=== PATIENT | male | born 1980 | race Hispanic/Latino ===

== ENCOUNTER 2019-05-20 07:48 | Emergency (ER) | payer BC, OTHER ==
[2019-05-20] MEDS ORDERED: IBUPROFEN 400 MG TABLET ONE (08:45)
== END 2019-05-20 09:55 | disposition home or self-care (01) ==
LOC: EDH 07:48
DX: S83.92XA Sprain of unspecified site of left knee, initial encounter (principal); E03.9 Hypothyroidism, unspecified; X50.1XXA Overexertion from prolonged static or awkward postures, initial encounter; Y93.01 Activity, walking, marching and hiking; Y92.89 Other specified places as the place of occurrence of the external cause; Y99.8 Other external cause status
CPT/HCPCS: 29505; 73562